=== PATIENT | male | born 1975 | race Caucasian/White ===

== ENCOUNTER 2022-09-28 05:43 | Outpatient (CLI) | payer OTHER ==
[~2022-09-28] VITALS: Ht 172.7 cm; Wt 104.5 kg
[2022-09-28] MEDS ORDERED: LISI40TA9 PO (11:01)
[2022-09-28] MEDS ORDERED: HYDR25TA4 PO (11:02)
[2022-09-28] MEDS ORDERED: LOSA100T57 PO (11:02)
[2022-09-28] MEDS ORDERED: LORA-1358 PO (11:02)
[2022-09-28] MEDS ORDERED: MTP100TCR PO (11:02)
[2022-09-28] MEDS ORDERED: FENO160T12 PO (11:02)
[2022-09-28] MEDS ORDERED: ROSU40TA23 PO (11:02)
[2022-09-28] MEDS ORDERED: OMEP40CA6 PO (11:02)
== END 2022-09-28 14:50 ==
LOC: PREOP 05:43
PROVIDERS: ATTEND Otolaryngology Otolaryngology/Facial Plastic Surgery
DX: Z01.818 Encounter for other preprocedural examination (principal); H66.91 Otitis media, unspecified, right ear

== ENCOUNTER 2022-10-01 06:32 | Day surgery (SDC) | payer OTHER ==
[~2022-10-01] VITALS: Ht 172.7 cm; Wt 104.5 kg
[2022-10-01] VITALS (8 sets, daily range): BP systolic 126–143; BP diastolic 76–95
[~2022-10-01 06:32] MED LIST: FENO160T12 PO; HYDR25TA4 PO; LISI40TA9 PO; LORA-1358 PO; LOSA100T57 PO; MTP100TCR PO; OMEP40CA6 PO; ROSU40TA23 PO
--- NOTE | 2022-10-01 07:02 | Progress Note-Pre Operative ---
Pre-Operative Progress Note Date of Available H&P: Oct 01, 2022 Date H&P Reviewed: Oct 01, 2022 Time H&P Reviewed: 06:30 History & Physical: H&P Reviewed, Patient Examed, No changes noted Changes from last HP none Pre-Operative Diagnosis: Right HUGO JANET LOZA MD Oct 01, 2022 07:02
--- NOTE | 2022-10-01 07:03 | Progress Note-Post Operative ---
Post-Operative Progess Note Surgeon (s)/Supervisor Sheet Manufacturing (s) Surgeon JANET LOZA MD Supervisor Sheet Manufacturing n/a Pre-Operative Diagnosis Right HUGO Post-Operative Diagnosis same Post-Op Procedure Note Date of Procedure: Oct 01, 2022 Name of Procedure Performed: Right Myringotomy with Tube Description & Findings Description and Findings: n/a Anesthesia Type lma Estimated Blood Loss minimal Packing none. Specimen(s) collected/removed none JANET LOZA MD Oct 01, 2022 07:03
[2022-10-01] MEDS ORDERED: APAP 325 MG/10.15 ML LIQ (TYLENOL) UDC PO PRN (07:15)
[2022-10-01] MEDS ORDERED: MIDAZOLAM 2 MG/2 ML (VERSED) VIAL ONE (07:26)
[2022-10-01] MEDS ORDERED: proPOfol 200 MG/20 ML (DIPRIVAN) VIAL IV ONE (07:26)
[2022-10-01] MEDS ORDERED: LIDOCAINE PF 2% 5 ML (XYLOCAINE) VIAL ONE (07:26)
[2022-10-01] MEDS ORDERED: ONDANSETRON 4 MG/2 ML (SDV) Z0FRAN ONE (07:26)
[2022-10-01] MEDS ORDERED: LACTATED RINGERS 1,000 ML IV PRN (07:30)
[2022-10-01] MEDS ORDERED: SEVOFLURANE (ULTANE) 15 ML INHAL SOLN ONE (07:43)
--- NOTE | 2022-10-01 07:52 | Anesthesia-General Post-Op ---
General Patient Condition Mental Status/LOC: Same as Preop Cardiovascular: Satisfactory Nausea/Vomiting: Absent Respiratory: Satisfactory Pain: Controlled Complications: Absent Post Op Complications Complications None Follow Up Care/Instructions Patient Instructions None needed. Anesthesia/Patient Condition Patient Condition Patient is doing well, no complaints, stable vital signs, no apparent adverse anesthesia problems. No complications reported per nursing. LIZ DA SILVA CRNA Oct 01, 2022 07:52
[2022-10-01] MEDS ORDERED: morphine INJ 10 MG/ML 1ML (SYR OR VIAL) IVP ONE (08:00)
[2022-10-01] MEDS ORDERED: ONDANSETRON 4 MG/2 ML (SDV) Z0FRAN IVP PRN (08:00)
[2022-10-01] MEDS ORDERED: OFLO5DRO33 EACH EAR (08:11)
== END 2022-10-01 08:53 ==
LOC: SDC 06:32
PROVIDERS: ATTEND Otolaryngology Otolaryngology/Facial Plastic Surgery
DX: H65.21 Chronic serous otitis media, right ear (principal); H69.93 Unspecified Eustachian tube disorder, bilateral; H74.8X2 Other specified disorders of left middle ear and mastoid; G47.33 Obstructive sleep apnea (adult) (pediatric)
CPT/HCPCS: 87081